=== PATIENT | male | born 1985 | race Caucasian/White ===

== ENCOUNTER 2017-09-10 16:05 | Emergency (ER) | payer OTHER ==
--- NOTE | 2017-09-10 16:20 | PDOC ---
History of Present Illness - General History Source: Patient Exam Limitations: No Limitations - History of Present Illness Initial Comments: 09/10/17 16:24 The patient is a 32-year-old male, with no significant past medical history, who presents to the ED s/p stubbing his left pinky toe with a piece of furniture. The patient has never injured his left foot before. He denies taking anything medications for pain. He was able to ambulate on the foot. He rates the pain a 3/10 in severity. He denies having any other injuries or symptoms. <Sofi Mclean - Last Filed: 09/10/17 16:24> <Sudha Gomez - Last Filed: 09/10/17 17:28> - General Chief Complaint: Injury Stated Complaint: LEFT FOOT INNURY Time Seen by Provider: 09/10/17 16:07 Past History <Sfoi Mclean - Last Filed: 09/10/17 16:24> <Sudha Gomez - Last Filed: 09/10/17 17:28> - Past Medical History Allergies/Adverse Reactions: Allergies Allergy/AdvReac Type Severity Reaction Status Date / Time No Known Allergies Allergy Verified 09/10/17 16:13 Home Medications: Ambulatory Orders NK [No Known Home Medication] 09/10/17 Review of Systems - Review of Systems Able to Perform ROS?: Yes Comments:: 09/10/17 16:24 GENERAL/CONSTITUTIONAL: No fever or chills. No weakness. HEAD, EYES, EARS, NOSE AND THROAT: No change in vision. No ear pain or discharge. No sore throat. CARDIOVASCULAR: No chest pain or shortness of breath. RESPIRATORY: No cough, wheezing, or hemoptysis. GASTROINTESTINAL: No nausea, vomiting, diarrhea or constipation. GENITOURINARY: No dysuria, frequency, or change in urination. MUSCULOSKELETAL: (+)Left pinky toe pain. No joint swelling or pain. No neck or back pain. SKIN: No rash. NEUROLOGIC: No headache, vertigo, loss of consciousness, or change in strength/ sensation. ENDOCRINE: No increased thirst. No abnormal weight change. HEMATOLOGIC/LYMPHATIC: No anemia, easy bleeding, or history of blood clots. ALLERGIC/IMMUNOLOGIC: No hives or skin allergy. <Sofi Mclean - Last Filed: 09/10/17 16:24> *Physical Exam - Vital Signs Last Vital Signs Temp Pulse Resp BP Pulse Ox 97.4 F L 73 18 129/82 100 09/10/17 16:06 09/10/17 16:06 09/10/17 16:06 09/10/17 16:06 09/10/17 16:06 - Physical Exam Comments: 09/10/17 16:25 GENERAL: Awake, alert, and fully oriented, in no acute distress HEAD: No signs of trauma EYES: PERRLA, EOMI, sclera anicteric, conjunctiva clear ENT: Auricles normal inspection, hearing grossly normal, nares patent, oropharynx clear without exudates. Moist mucosa NECK: Normal ROM, supple, no lymphadenopathy, JVD, or masses LUNGS: Breath sounds equal, clear to auscultation bilaterally. No wheezes, and no crackles HEART: Regular rate and rhythm, normal S1 and S2, no murmurs, rubs or gallops ABDOMEN: Soft, nontender, normoactive bowel sounds. No guarding, no rebound. No masses EXTREMITIES: (+)Left pinky toes is angled awkwardly;pinky toe is tender to palpation. No clubbing or cyanosis. No cords, erythema. NEUROLOGICAL: Cranial nerves II through XII grossly intact. Normal speech, normal gait SKIN: Warm, Dry, normal turgor, no rashes or lesions noted <Sofi Mclean - Last Filed: 09/10/17 16:24> Procedures - Joint Reduction Left Joint Reduction Site: left: Posterior Dislocation (L pinky toe w fracture requiring reduction) Pre-Procedure NV Exam: normal Conscious Sedation: No Finger Block: 5th digit Reduction Attempts: 1 (reduced, tolerated procedure well) Anesthetic: 1% Lidocaine Amount (mL): 1 Procedure: Other (L pinky toe fracture reduced on 1st attempt) Post-Procedure NV Exam: normal Complications: No Post Joint Reduction Film: fracture reduced Immobilized: Yes (ilan tape) <Sudha Gomez - Last Filed: 09/10/17 17:28> Medical Decision Making - Medical Decision Making 09/10/17 16:21 a/p: 32yo male with L pinky toe injury -denies wanting any medication for pain -will obtain xrays -suspect fracture/dislocation of the toe and will need reduction 09/10/17 17:02 xray shows L pinky toe frature with angulation requiring reduction given lidocaine 1%, reduced fracture, ilan tape applied pt went back to xray for repeat imaging 09/10/17 17:27 reduction film more aligned. given hard sole shoe. discussed ilan taping and need for ice, rice. discussed avoiding further injury. discussed need for follow up with PMD and orhtopedics/podiatry. pt stable for d/ c to home. has been ambulatory in the ED. denies wanting pain control. will control with tylenol at home. <Sudha Gomez - Last Filed: 09/10/17 17:28> *DC/Admit/Observation/Transfer - Attestations Scribe Attestion: 09/10/17 16:27 Documentation prepared by Sofi Mclean, acting as medical office representative for Sudha Gomez DO, MD. <Sofi Mclean - Last Filed: 09/10/17 16:24> - Discharge Dispostion Admit: No - Attestations Physician Attestion: 09/10/17 17:05 I, Dr. Sudha Gomez DO, attest that this document has been prepared under my direction and personally reviewed by me in its entirety. I further attest, that it accurately reflects all work, treatment, procedures and medical decision -making performed by me. <Sudha Gomez - Last Filed: 09/10/17 17:28> Diagnosis at time of Disposition: Toe fracture, left - Discharge Dispostion Disposition: HOME Condition at time of disposition: Stable - Referrals Referrals: Willis Ellis MD [Staff Physician] - Chuck Vegas MD [Staff Physician] - Mita Jimenez MD [Staff Physician] - - Patient Instructions Printed Discharge Instructions: DI for Toe Fracture, Smoking Cessation Additional Instructions: Please make an appointment to follow up with the orthopedic surgeon or the ice grinder for further evaluation of your broken toe. Please also follow up with your PMD. Please return to the ED with any further concerns. Please apply ice. 20min on and 20min off.
[2017-09-10 16:25] VITALS: BP 129/82; PULSE 73; TEMP 97.4; BMI 25.8
[2017-09-10] MEDS ORDERED: LIDOCAINE HCL 1%, 10 MG/ML (20ML VIAL) ONE (16:43)
== END 2017-09-10 17:38 | disposition home or self-care (01) ==
LOC: FER 16:05
PROC: 0QSRXZZ Reposition Left Toe Phalanx, External Approach (ICD-10-PCS; principal; 2017-09-10)
PROC: 2W3VXYZ Immobilization of Left Toe using Other Device (ICD-10-PCS; 2017-09-10)
DX: S92.512A Displaced fracture of proximal phalanx of left lesser toe(s), initial encounter for closed fracture (principal); W22.01XA Walked into wall, initial encounter; Y93.89 Activity, other specified; Y92.9 Unspecified place or not applicable
CPT/HCPCS: 73630-TC-LT; 99281-25

== ENCOUNTER 2018-05-23 18:22 | Emergency (ER) | payer OTHER ==
--- NOTE | 2018-05-23 18:28 | PDOC ---
History of Present Illness - General Chief Complaint: Injury Stated Complaint: LEFT HAND LACERATION Time Seen by Provider: 05/23/18 18:27 History Source: Patient Exam Limitations: No Limitations - History of Present Illness Initial Comments: 05/23/18 18:37 33 year old male with no PMH presenting to ED for left hand laceration. He states today he was using a round saw and it accidentally cut him. Denies weakness, numbness, fevers, chills, nausea, vomiting or any other complaints. Pt states he does not know when his last tetatus immunization was. Past History - Past Medical History Allergies/Adverse Reactions: Allergies Allergy/AdvReac Type Severity Reaction Status Date / Time No Known Allergies Allergy Verified 05/23/18 18:27 Home Medications: Ambulatory Orders Cephalexin Monohydrate [Keflex -] 500 mg PO Q6H #27 capsule 05/23/18 COPD: No - Suicide/Smoking/Psychosocial Hx Smoking History: Current some day smoker Number of Cigarettes Smoked Daily: 1 Hx Alcohol Use: Yes (occasional) Drug/Substance Use Hx: No Substance Use Type: None Review of Systems - Review of Systems Able to Perform ROS?: Yes Comments:: 05/23/18 18:39 General: denies fever, chills, night sweats, generalized weakness. HEENT: denies sore throat, rhinorrhea, ear pain. Heart: denies chest pain, palpitations, syncope, lower extremity swelling, diaphoresis. Respiratory: denies shortness of breath, cough, sputum production, hematemesis. Abdomen: denies abdominal pain, nausea, vomiting, diarrhea, constipation, blood in stool. : denies dysuria, increased urinary frequency, hematuria, urinary incontinence , flank pain. Back: denies back pain. Musculoskeletal: denies finger weakness. Neurological: denies headache, dizziness, numbness, tingling, weakness. Skin: admits to laceration. *Physical Exam - Physical Exam Comments: 05/23/18 18:40 Appearance: comfortable. HEENT: head is normocephalic, atraumatic. EOMI. PERRLA. Neck: supple. Full ROM. Heart: regular rhythm. no murmurs, rubs or gallops. Lungs: clear to auscultation bilaterally. no crackles, rhonchi or wheezing. no stridor. Abdomen: soft, nontender. normal bowel sounds. no rebound, guarding, masses. Extremities: Peripheral pulses intact. No lower extremity edema. Left hand: 1.5 cm linear laceration to the palmar surface, just proximal to the MCP of 2nd digit. no foreign body. Full extensor and flexor strength to all fingers of left hand. neurovascularly intact all fingers of left hand. Neurological: Alert. Oriented x3. CN 2-12 grossly intact. Moves all four extremities. 05/23/18 19:45 Post-laceration repair examination: 6 4.0 nylon sutures placed. Full extensor and flexor strength. Sensation fully intact. neurovascularly intact left hand and all fingers. Procedures - Laceration/Wound Repair Volar Hand Wound Length: to 2.5 cm (3 modified mattress sutures and 3 simple interrupted sutures placed.) Wound Explored: clean, no foreign body present Wound's Depth, Shape: superficial Irrigated w/ Saline: Yes Betadine Prep: Yes Anesthesia: 1% Lidocaine Amount of Anesthetic (ccs): 20 Wound Repaired With: Sutures Suture Size/Type: 4:0, nylon Number of Sutures: 6 Medical Decision Making - Medical Decision Making 05/23/18 19:49 33 y/o male with no PMH presenting to ED for laceration repair. 1.5 cm laceration to volar hand. Repaired with 6 4.0 nylon sutures. Bacitracin and dressing applied. 1st dose of Keflex given in ED. Prescription sent to pts pharmacy. Pt will be discharged with instructions for wound care, date for return to ED for suture removal, and return precautions. I discussed the plan for care with the patient, with which he agrees. *DC/Admit/Observation/Transfer Diagnosis at time of Disposition: Laceration - Discharge Dispostion Disposition: HOME Condition at time of disposition: Good Decision to Admit order: No - Prescriptions Prescriptions: Cephalexin Monohydrate [Keflex -] 500 mg PO Q6H #27 capsule - Referrals Referrals: Vicki Koch MD [Primary Care Provider] - - Patient Instructions Printed Discharge Instructions: DI for Laceration Repair -- Complex Suture Additional Instructions: You were seen today for laceration repair. 6 stitches were placed. Return to the Emergency Department in 10 DAYS for re-evaluation and possible removal of sutures. Keep the area dry and covered for 72 hours. Do not get it wet during this time. After you can wash it with water and soap. You do not need to vigourously clean it. Just let the water run over it. I sent a prescription for an antibiotic to your pharmacy. Pick it up today and take all pills as prescribed. Return to the Emergency Department in less than 10 days if you develop fever, chills, nausea, vomiting, weakness, discharge from the wound site, numbness, tingling, weakness of your hand or fingers, large swelling or any other new, worsening or concerning symptoms. - Post Discharge Activity
[2018-05-23] MEDS ORDERED: DIPHTH,PERTUSS(ACELL),TET 0.5 ML DISP.SYRIN IM ONE (18:36)
[2018-05-23 18:39] VITALS: BP 116/72; PULSE 70; TEMP 98.2; BMI 25.8
[2018-05-23] MEDS ORDERED: LIDOCAINE HCL 2% (50ML VIAL) SQ ONE (18:43)
--- NOTE | 2018-05-23 18:58 | PDOC ---
Attending Attestation - Resident Resident Name: Mame Miranda - ED Attending Attestation I have performed the following: I have examined & evaluated the patient, The case was reviewed & discussed with the resident, I agree w/resident's findings & plan, Exceptions are as noted - HPI HPI: 05/23/18 18:55 Laceration of the left hand with a saw. No distal numbness tingling pain weakness or limited motion of the finger. - Physicial Exam PE: 05/23/18 18:56 1 cm laceration of the left hand, volar surface of the palm, at the base of the second digit. Superficial. No deep structures involved. No deep penetration. Capillary refill intact. Sensation intact to the distribution of both digital nerves in the fingertip. Full tendon function in flexion and extension against resistance of the MCP, PIP, and DIP joints. Local anesthesia 1% lidocaine plain performed by Dr. Miranda. Wound was thoroughly scrubbed and irrigated and explored and found to be superficial. Closed with 4-0 nylon. Wound care instructions. Recheck immediately if sign of infection. Otherwise suture removal in 7-10 days. Tetanus booster as indicated. - Medical Decision Making 05/23/18 18:58 Assessment and plan as above. Tolerated procedure well. Fully ambulatory and in no pain or other distress at discharge.
[2018-05-23] MEDS ORDERED: CEPHALEXIN MONOHYDRATE 500 MG CAPSULE (UD) PO ONE (19:49)
[2018-05-23] MEDS ORDERED: CEPHALEXIN MONOHYDRATE 500 MG CAPSULE (UD) ONE (19:54)
--- NOTE | 2018-05-25 15:47 | PDOC ---
*Physical Exam - Vital Signs Last Vital Signs Temp Pulse Resp BP Pulse Ox 98.2 F 70 16 116/72 97 05/23/18 18:26 05/23/18 18:26 05/23/18 18:26 05/23/18 18:26 05/23/18 18:26 ED Treatment Course - Medications Given in the ED: ED Medications Discontinued Medications Generic Name Dose Route Start Last Admin Trade Name Minnie PRN Reason Stop Dose Admin Cephalexin HCl 500 mg 05/23/18 19:49 05/23/18 19:54 Keflex - PO 05/23/18 19:50 500 mg ONCE ONE Administration Diphtheria/Tetanus/Acell Pertussis 0.5 ml 05/23/18 18:36 05/23/18 18:45 Boostrix - IM 05/23/18 18:37 0.5 ml .ONCE ONE Administration Medical Decision Making - Medical Decision Making 05/25/18 15:46 Patient presented to ED stating that he lost his prescription for keflex. Chart reviewed, sent new prescription. Patient appears well. *DC/Admit/Observation/Transfer Diagnosis at time of Disposition: Laceration - Discharge Dispostion Disposition: HOME Condition at time of disposition: Good - Prescriptions Prescriptions: Cephalexin Monohydrate [Keflex -] 500 mg PO Q6H #27 capsule Cephalexin Monohydrate [Keflex -] 500 mg PO Q6H #28 capsule - Referrals Referrals: Vicki Koch MD [Primary Care Provider] - - Patient Instructions Printed Discharge Instructions: DI for Laceration Repair -- Complex Suture Additional Instructions: You were seen today for laceration repair. 6 stitches were placed. Return to the Emergency Department in 10 DAYS for re-evaluation and possible removal of sutures. Keep the area dry and covered for 72 hours. Do not get it wet during this time. After you can wash it with water and soap. You do not need to vigourously clean it. Just let the water run over it. I sent a prescription for an antibiotic to your pharmacy. Pick it up today and take all pills as prescribed. Return to the Emergency Department in less than 10 days if you develop fever, chills, nausea, vomiting, weakness, discharge from the wound site, numbness, tingling, weakness of your hand or fingers, large swelling or any other new, worsening or concerning symptoms. - Post Discharge Activity
== END 2018-05-23 20:03 | disposition home or self-care (01) ==
LOC: FER 18:22
PROC: 0HQGXZZ Repair Left Hand Skin, External Approach (ICD-10-PCS; principal; 2018-05-23)
DX: S61.412A Laceration without foreign body of left hand, initial encounter (principal); F17.210 Nicotine dependence, cigarettes, uncomplicated; W29.8XXA Contact with other powered hand tools and household machinery, initial encounter; Y93.89 Activity, other specified; Y92.9 Unspecified place or not applicable
CPT/HCPCS: 90715; 99282-25

== ENCOUNTER 2018-06-07 07:53 | Emergency (ER) | payer OTHER ==
--- NOTE | 2018-06-07 08:03 | PDOC ---
Suture Removal/Wound Check HPI - History of Present Illness Chief Complaint: Suture/Staple Removal(Here) Stated Complaint: SUTURE REMOVAL LEFT HAND Time Seen by Provider: 06/07/18 08:02 Past History - Past Medical History Allergies/Adverse Reactions: Allergies Allergy/AdvReac Type Severity Reaction Status Date / Time No Known Allergies Allergy Verified 06/07/18 07:54 Home Medications: Ambulatory Orders NK [No Known Home Medication] 06/07/18 COPD: No - Suicide/Smoking/Psychosocial Hx Smoking History: Current some day smoker Have you smoked in the past 12 months: Yes Number of Cigarettes Smoked Daily: 1 'Breaking Loose' booklet given: 05/23/18 Hx Alcohol Use: Yes (occasional) Drug/Substance Use Hx: No Substance Use Type: None *DC/Admit/Observation/Transfer Diagnosis at time of Disposition: Encounter for removal of sutures - Discharge Dispostion Disposition: HOME Condition at time of disposition: Improved Decision to Admit order: No - Referrals - Patient Instructions Printed Discharge Instructions: DI for Suture Removal - Post Discharge Activity
[2018-06-07 08:04] VITALS: BP 127/77; PULSE 67; TEMP 98.3; BMI 25.1
== END 2018-06-07 08:10 | disposition home or self-care (01) ==
LOC: FER 07:53
DX: Z48.02 Encounter for removal of sutures (principal)
CPT/HCPCS: 99281-25